=== PATIENT | female | born 1940 | race Hispanic/Latino ===

== ENCOUNTER 2021-07-08 17:43 | Inpatient (IN) | payer MEDICARE ==
[~2021-07-08] VITALS: Ht 157.5 cm; Wt 74.2 kg
[~2021-07-08 17:43] MED LIST: AEC81 PO; AMLO2.5T4 PO; ATOR40TA69 PO; CLOP75TA14 PO; DAPA1TAB3 PO; DEXL60CA3 PO; GABA300S PO; ISOS60TA77 PO; LEVO25CA4 PO; LINA145C PO; LIRA0.6P SQ; MEMA28CA16 PO; METO-391 PO; MIRA25TA PO; NITR0.4T50 SL; SERT-438 PO; VALS1TAB80 PO; VIT1CAPS5 PO
[2021-07-08] MEDS ORDERED: SODIUM BICARB 8.4% 50ML SYRINGE IVP ONE (18:14)
[2021-07-08] MEDS ORDERED: EPINEPHRINE 1MG SYG 10ML IVP ONE ×2 (18:14)
[2021-07-08] MEDS ORDERED: CACL 1GM SYG IVP ONE (18:14)
[2021-07-08] MEDS ORDERED: ATROPINE 1MG SYG IVP ONE (18:14)
[2021-07-08] MEDS ORDERED: LIDOCAINE PF 100MG/5ML (2%) SYRINGE 5ML IVP ONE (18:14)
[2021-07-08 18:23] LABS: BASOPHILS % (AUTO) 0.2 % (0.0-5.0); EOSINOPHILS % (AUTO) 0.1 % (0.0-8.0); HEMATOCRIT 29.4 % (36-48); LYMPHOCYTES % (AUTO) 8.8 % (21.0-51.0); MEAN CORPUSCULAR HEMOGLOBIN 21.5 pg (27.0-33.0); MEAN CORPUSCULAR HGB CONC 28.2 g/dL (32.0-36.0); MEAN CORPUSCULAR VOLUME 76.2 fL (79-99); MONOCYTES % (AUTO) 4.8 % (3.0-13.0); NEUTROPHILS % (AUTO) 85.4 % (40.0-77.0); PLATELET COUNT (AUTO) 279 K/uL (130-400); RED BLOOD CELL COUNT(AUTO) 3.86 MIL/uL (4.00-5.50); RED CELL DISTRIBUTION WIDTH 17.6 % (11.0-15.5)
[2021-07-08 18:43] LABS: ALBUMIN 3.3 g/dL (3.5-5.0); BILIRUBIN,TOTAL 0.5 mg/dL (0.2-1.0); CREATININE 1.4 mg/dL (0.5-1.5); TOTAL PROTEIN, SERUM 6.5 g/dL (6.0-8.3)
[2021-07-08 19:00] LABS: B-TYPE NATRIURETIC PEPTIDE 783 pg/mL (0-100)
[2021-07-08] MEDS ORDERED: ZOSYN 3.375GM +NS 50ML IV ONE (20:00)
[2021-07-08] MEDS ORDERED: INSULIN HUMULIN R 100 UNIT/ML 3ML SQ ONE (20:00)
[2021-07-08] MEDS ORDERED: 0.9%NACL 1000ML 1,710 ML IV ONE (20:30)
[2021-07-08] MEDS ORDERED: IPRATROPIUM/ALBUTEROL SULFATE 3 ML SOLUTION IH ONE (20:30)
[2021-07-08] MEDS ORDERED: ACETAMINOPHEN 325 MG TAB PO PRN (20:30)
[2021-07-08] MEDS ORDERED: ONDANSETRON 4MG INJ IV PRN (20:30)
[2021-07-08 20:37] LABS: ABG BASE EXCESS -4.9 mmol/L (-2.0-3.0); ABG HCO3 17.2 mmol/L (21.0-28.0); ABG OXYGEN SATURATION 88.4 % (95.0-99.0); ABG PCO2 26 mmHg (32-45)
[2021-07-08] MEDS ORDERED: DEXAMETHASONE SOD PHOSPHATE 4 MG/ML 1ML VIAL IV SCH (21:00)
[2021-07-08] MEDS ORDERED: DEXAMETHASONE SOD PHOSPHATE 4 MG/ML 1ML VIAL IVP ONE (21:00)
[2021-07-08] MEDS: ZOSYN 3.375GM+NS 50ML 50 ML IV SCH (21:04)
[2021-07-08] MEDS: INSULIN HUMULIN R 100 UNIT/ML 3ML SQ SCH (21:15)
[2021-07-08 21:25] LABS: APPEARANCE,URINE Clear (CLEAR); BILIRUBIN,URINE Negative (NEGATIVE); COLOR,URINE Yellow (YELLOW); GLUCOSE, URINE (UA) >=1000 mg/dL (NEGATIVE); KETONES,URINE Negative (NEGATIVE); LEUKOCYTE ESTERASE ,URINE Negative (NEGATIVE); NITRATE,URINE Negative (NEGATIVE); OCCULT BLOOD,URINE Negative (NEGATIVE); PROTEIN,URINE Negative (NEGATIVE); UROBILINOGEN,URINE 0.2 mg/dL (0.2-1.0)
[2021-07-08 21:33] LABS: RBC,URINE 0-1 /HPF (0-1); WBC,URINE 0-1 /HPF (0-1); YEAST,URINE BUDDING Rare /HPF (None Seen)
[2021-07-08 21:34] LABS: BACTERIA,URINE Rare /HPF (None Seen); SQUAMOUS EPITHELIAL CELL,UR Rare /HPF (0-2)
[2021-07-09] MEDS ORDERED: LORAZEPAM 2 MG/ML 1 ML VIAL ONE (00:13)
[2021-07-09] MEDS: IPRATROPIUM/ALBUTEROL SULFATE 3 ML SOLUTION IH SCH ×3 (00:13→11:28)
[2021-07-09] MEDS ORDERED: LORAZEPAM 2 MG/ML 1 ML VIAL IVP ONE (00:30)
[2021-07-09 03:00] VITALS: BP 133/45
[2021-07-09] MEDS ORDERED: MIRA25TA PO (03:31)
[2021-07-09] MEDS ORDERED: FURO20TA4 PO (03:31)
[2021-07-09] MEDS ORDERED: AMLO2.5T4 PO ×2 (03:31)
[2021-07-09] MEDS ORDERED: ZINC220T4 PO (03:31)
[2021-07-09] MEDS ORDERED: CHOL500051 PO (03:31)
[2021-07-09] MEDS ORDERED: FERS325 PO (03:31)
[2021-07-09] MEDS ORDERED: PANT40TA54 PO (03:31)
[2021-07-09] MEDS ORDERED: LABE200T5 PO (03:31)
[2021-07-09] MEDS ORDERED: MEMA14CA5 PO (03:31)
[2021-07-09] MEDS: ZOSYN 3.375GM+NS 50ML 50 ML IV SCH ×2 (03:50→13:20)
[2021-07-09 06:23] LABS: BASOPHILS % (AUTO) 0.1 % (0.0-5.0); HEMATOCRIT 27.2 % (36-48); LYMPHOCYTES % (AUTO) 7.3 % (21.0-51.0); MEAN CORPUSCULAR HEMOGLOBIN 22.1 pg (27.0-33.0); MEAN CORPUSCULAR HGB CONC 28.7 g/dL (32.0-36.0); MEAN CORPUSCULAR VOLUME 77.1 fL (79-99); MONOCYTES % (AUTO) 1.7 % (3.0-13.0); NEUTROPHILS % (AUTO) 90.1 % (40.0-77.0); PLATELET COUNT (AUTO) 279 K/uL (130-400); RED BLOOD CELL COUNT(AUTO) 3.53 MIL/uL (4.00-5.50); RED CELL DISTRIBUTION WIDTH 17.8 % (11.0-15.5); WHITE BLOOD COUNT (AUTO) 14.9 K/uL (4.8-10.8)
[2021-07-09] MEDS: INSULIN HUMULIN R 100 UNIT/ML 3ML SQ SCH ×2 (06:38→11:24)
[2021-07-09 06:51] LABS: INR 1.14 (0.85-1.15); PROTHROMBIN TIME 12.3 SEC (9.6-11.6)
[2021-07-09 06:52] LABS: PARTIAL THROMBOPLASTIN TIME 24.2 SEC (26.3-35.5)
[2021-07-09 07:53] VITALS: BP 122/59
[2021-07-09 08:12] LABS: PHOSPHORUS 3.3 mg/dL (2.5-4.9); POTASSIUM 4.3 mmol/L (3.5-5.1)
[2021-07-09 08:44] LABS: ABG BASE EXCESS -8.3 mmol/L (-2.0-3.0); ABG HCO3 16.1 mmol/L (21.0-28.0); ABG OXYGEN SATURATION 96.9 % (95.0-99.0); ABG PCO2 29 mmHg (32-45)
[2021-07-09] MEDS ORDERED: ENOXAPARIN SODIUM 30 MG/0.3 ML SQ SCH (09:00)
[2021-07-09] MEDS ORDERED: FAMOTIDINE 20MG VIAL IV SCH (09:00)
[2021-07-09] MEDS ORDERED: MORPHINE 2 MG SYG IVP PRN (10:00)
[2021-07-09] MEDS ORDERED: ACETAMINOPHEN 325 MG TAB PO PRN (10:00)
[2021-07-09 10:02] LABS: HEMOGLOBIN A1C 8.8 % (4.0-6.0)
[2021-07-09 11:36] VITALS: BP 145/64
[2021-07-09] MEDS ORDERED: HYDROXYZINE 10 MG TABLET PO SCH (14:30)
[2021-07-09 15:30] VITALS: BP 154/64
[2021-07-09] MEDS ORDERED: AZITHROMYCIN 500MG+NS 250ML IVPB SCH (16:00)
[2021-07-09] MEDS ORDERED: FUROSEMIDE 40MG VIAL IV STA (16:02)
[2021-07-09] MEDS ORDERED: SOLU-MEDROL 40MG VIAL IVP SCH (16:30)
[2021-07-09 16:47] LABS: ABG BASE EXCESS -18.5 mmol/L (-2.0-3.0); ABG HCO3 10.9 mmol/L (21.0-28.0); ABG OXYGEN SATURATION 79.8 % (95.0-99.0); ABG PCO2 41 mmHg (32-45)
[2021-07-09] MEDS ORDERED: FENTANYL CITRATE PF 0.05 MG/ML 1,000 MCG in 0.9%NACL 100ML 100 ML IVPB STA (17:23)
[2021-07-09 17:30] LABS: ABG BASE EXCESS -14.3 mmol/L (-2.0-3.0); ABG HCO3 13.7 mmol/L (21.0-28.0); ABG OXYGEN SATURATION 69.7 % (95.0-99.0); ABG PCO2 40 mmHg (32-45)
[2021-07-09] MEDS ORDERED: FENTANYL 2500MCG+NS 250ML 250 ML IV SCH (17:30)
[2021-07-09] MEDS ORDERED: MIDAZOLAM 100MG-0.9% NS 100ML 100 ML IV SCH (17:30)
[2021-07-09] MEDS ORDERED: NOREPINEPHRIN 4MG/NS 250ML 250 ML IV ONE (18:05)
[2021-07-09] MEDS ORDERED: EPINEPHRINE IV SCH (18:30)
[2021-07-09] MEDS ORDERED: NACL 0.9% IV SCH (18:30)
== END 2021-07-09 18:15 | DRG 871 ==
LOC: EDH 17:43 → EDHIP 20:23 → 4AH 07-09 02:47 → 2CH 07-09 17:09
PROVIDERS: ADMIT Hospitalist; ATTEND Hospitalist
PROC: 5A09357 Assistance with Respiratory Ventilation, Less than 24 Consecutive Hours, Continuous Positive Airway Pressure (ICD-10-PCS; principal; 2021-07-08)
PROC: 5A09357 Assistance with Respiratory Ventilation, Less than 24 Consecutive Hours, Continuous Positive Airway Pressure (ICD-10-PCS; 2021-07-09)
PROC: 0BH17EZ Insertion of Endotracheal Airway into Trachea, Via Natural or Artificial Opening (ICD-10-PCS; 2021-07-09)
DX: A41.9 Sepsis, unspecified organism (principal); J18.9 Pneumonia, unspecified organism; J96.01 Acute respiratory failure with hypoxia; D62 Acute posthemorrhagic anemia; Z20.822 Contact with and (suspected) exposure to COVID-19; F02.80 Dementia in other diseases classified elsewhere, unspecified severity, without behavioral disturbance, psychotic disturbance, mood disturbance, and anxiety; G30.9 Alzheimer's disease, unspecified; M19.90 Unspecified osteoarthritis, unspecified site; Z87.891 Personal history of nicotine dependence; F32.A Depression, unspecified; E03.9 Hypothyroidism, unspecified; E78.00 Pure hypercholesterolemia, unspecified; E11.51 Type 2 diabetes mellitus with diabetic peripheral angiopathy without gangrene; E78.5 Hyperlipidemia, unspecified; I44.7 Left bundle-branch block, unspecified; I10 Essential (primary) hypertension; I35.0 Nonrheumatic aortic (valve) stenosis; D72.810 Lymphocytopenia; E11.65 Type 2 diabetes mellitus with hyperglycemia; F41.9 Anxiety disorder, unspecified; I25.2 Old myocardial infarction
CPT/HCPCS: 31500; 36415; 36600; 71045; 80048; 80053; 81001; 82435; 82803; 82947; 82948; 83036; 83605; 83880; 84100; 84132; 84145; 84295; 84484; 85018; 85025; 85610; 85730; 87040; 87635; 87804; 92950; 93005; 94002; 94640; 94660; 94664; 99291; C9803; G0378; J0171; J0461; J1100; J1650; J1815; J1940; J2001; J2060; J2250; J2405; J2543; J3010; J3490; J7050